=== PATIENT | male | born 1975 | race Caucasian/White ===

== ENCOUNTER → 2019-07-21 | Outpatient (CLI) | payer OTHER ==
--- NOTE | 2019-07-22 07:47 | US ---
EXAMINATION TYPE: US carotid duplex BILAT DATE OF EXAM: 07/21/2019 COMPARISON: NONE CLINICAL HISTORY: R42 Vertigo. dizziness, HTN- controlled with meds EXAM MEASUREMENTS: RIGHT: Peak Systolic Velocity (PSV) cm/sec ----- Right CCA: 117.3 ----- Right ICA: 119.4 ----- Right ECA: 111.3 ICA/CCA ratio: 1.0 RIGHT: End Diastole cm/sec ----- Right CCA: 34.9 ----- Right ICA: 35.4 ----- Right ECA: 22.5 LEFT: Peak Systolic Velocity (PSV) cm/sec ----- Left CCA: 136.6 ----- Left ICA: 119.4 ----- Left ECA: 87.9 ICA/CCA ratio: 0.9 LEFT: End Diastole cm/sec ----- Left CCA: 38.1 ----- Left ICA: 41.8 ----- Left ECA: 18.0 VERTEBRALS (direction of flow): Right Vertebral: Antegrade Left Vertebral: Antegrade Rhythm: Normal No significant stenosis. No plaque visualized. No wall thickening. IMPRESSION: Diffusely upper limits of normal peak systolic velocities corresponding to this patient' s history of hypertension. Internal carotid artery to common carotid artery ratios are within normal limits. Mild degree of grayscale wall thickening with no sonographically evident hemodynamically sign ificant stenosis within either visualized carotid arterial system. Criteria for Assigning % of Stenosis / Diameter reduction (Estimation based on the indirect measurements of the internal carotid artery velocities (ICA PSV). 1. Normal (no stenosis)=ICA PSV < 125 cm/s: ratio < 2.0: ICA EDV<40 cm/s. 2. Less than 50% stenosis=ICA PSV < 125 cm/s: ratio < 2.0: ICA EDV<40 cm/s. 3. 50 to 69% stenosis=ICA PSV of 125 to 230 cm/s: ration 2.0 ? 4.0: ICA EDV 40-100 cm/s. 4. Greater than 70% stenosis to near occlusion= ICA PSV > 230 cm/s: ratio > 4.0: ICA EDV > 100 cm/s. 5. Near occlusion= ICA PSV velocities may be low or undetectable: variable ratio and ICA EDV. 6. Total occlusion=unable to detect flow.
== END | disposition home or self-care (01) ==
LOC: RADUSWWP 16:57
PROVIDERS: ATTEND Psychiatry & Neurology Neurology
DX: I77.89 Other specified disorders of arteries and arterioles (principal); Z86.79 Personal history of other diseases of the circulatory system
CPT/HCPCS: 93880